=== PATIENT | female | born 1955 | race Caucasian/White ===

== ENCOUNTER 2017-11-11 17:23 | Emergency (ER) | payer BC ==
[2017-11-11] MEDS ORDERED: Levalbuterol 0.63MG/3ML NEB* UNIT OF USE INH ONE (17:39)
[2017-11-11] MEDS ORDERED: predniSONE TAB* 20 MG PO ONE (17:43)
--- NOTE | 2017-11-11 17:44 | UC ---
Respiratory Complaint HPI - HPI Summary HPI Summary: Pt c/o sudden onset of "flare of asthma" and URI like symptoms of nasal congestion, cough, and SOB. Pt stated that she started to feel "achy" yesterday and went to work today began to feel more "chest tightness", productive cough and "difficulty breathing" - History of Current Complaint Chief Complaint: UCGeneralIllness Stated Complaint: ASTHMA/DIFFICULTY BREATHING Time Seen by Provider: 11/11/17 17:28 Hx Obtained From: Patient ?: No Onset/Duration: Gradual Onset, Lasting Days Timing: Constant Severity Initially: Mild Severity Currently: Moderate Character: Cough: Productive Aggravating Factors: Exertion, Deep Breaths Alleviating Factors: Nothing Associated Signs And Symptoms: Positive: Dyspnea, URI, Nasal Congestion - Risk Factors Pulmonary Embolism Risk Factors: Negative Cardiac Risk Factors: Negative Pseudomonas Risk Factors: Negative Tuberculosis Risk Factors: Negative - Allergies/Home Medications Allergies/Adverse Reactions: Allergies Allergy/AdvReac Type Severity Reaction Status Date / Time No Known Allergies Allergy Verified 11/11/17 17:34 PMH/Surg Hx/FS Hx/Imm Hx Previously Healthy: Yes Respiratory History: Asthma - Surgical History Surgical History: Yes Surgery Procedure, Year, and Place: hysterectomy. 5 - Family History Known Family History: Positive: Cardiac Disease - Social History Occupation: Employed Full-time Lives: With Family Alcohol Use: Occasionally Substance Use Type: None Smoking Status (MU): Never Smoked Tobacco Have You Smoked in the Last Year: No - Immunization History Most Recent Influenza Vaccination: none Review of Systems Constitutional: Fatigue Skin: Negative Eyes: Negative ENT: Other - nasal congestion Respiratory: Shortness Of Breath, Cough Cardiovascular: Negative Gastrointestinal: Negative Genitourinary: Negative Motor: Negative Neurovascular: Negative Musculoskeletal: Negative Neurological: Negative Psychological: Negative Is Patient Immunocompromised?: No All Other Systems Reviewed And Are Negative: Yes Physical Exam Triage Information Reviewed: Yes Vital Signs: Initial Vital Signs Temp 98.5 F 11/11/17 17:30 Pulse 103 11/11/17 17:30 Resp 18 11/11/17 17:30 BP 124/68 11/11/17 17:30 Pulse Ox 96 11/11/17 17:30 Vital Signs Reviewed: Yes Eye Exam: Normal ENT Exam: Other ENT: Positive: Nasal congestion Dental Exam: Normal Neck exam: Normal Respiratory Exam: Other Respiratory: Positive: Decreased breath sounds, Other: - c/o labored breathing Cardiovascular: Positive: Tachycardia Musculoskeletal Exam: Normal Neurological Exam: Normal Psychological Exam: Normal Skin Exam: Normal UC Diagnostic Evaluation - Laboratory O2 Sat by Pulse Oximetry: 96 Respiratory Course/Dx - Differential Dx/Diagnosis Differential Diagnosis/HQI/PQRI: Asthma, Exacerbation Of COPD Provider Diagnoses: reactive airway disease Discharge - Discharge Plan Condition: Stable Disposition: HOME Prescriptions: Albuterol HFA INHALER* [Ventolin HFA Inhaler*] 1 - 2 puff INH Q4H PRN #1 mdi PRN Reason: Sob/Wheezing Benzonatate CAP* [Tessalon 100 MG CAP*] 100 mg PO Q8H PRN #21 cap PRN Reason: Cough Montelukast Sodium TAB* [Singulair TAB*] 10 mg PO BEDTIME #30 tab predniSONE TAB* [Deltasone TAB*] 40 mg PO DAILY #8 tab Patient Education Materials: Reactive Airways Disease (ED) Referrals: Maury Flaherty MD [Primary Care Provider] - If Needed
[2017-11-11 17:50] VITALS: BP 124/68
== END 2017-11-11 18:16 | disposition home or self-care (01) ==
LOC: UCCORT 17:23
DX: J45.909 Unspecified asthma, uncomplicated (principal)
CPT/HCPCS: 99212; G0463; J7512; J7614

== ENCOUNTER 2018-05-18 15:54 | Emergency (ER) | payer BC ==
[2018-05-18 16:36] VITALS: BP 106/67
--- NOTE | 2018-05-18 16:58 | UC ---
Dizzy HPI HPI Summary: onset yesterday of whooshing sensation, relieved by holding her head still. Has some sense of movement of her body in space, but no room spinning. No headache or diplopia. No balance loss. In the past has responded to flonase and tx of allergies, as well as to meclizine. - History Of Current Complaint Chief Complaint: UCDizziness Stated Complaint: DIZZINESS (HX OF VERTIGO) Time Seen by Provider: 05/18/18 16:43 Hx Obtained From: Patient Onset/Duration: Sudden Onset, Lasting Days - 1-2 Timing: Intermittent Episode Lasting - hours; has to hold her head steady to avoid symptoms. Severity Initially: Moderate Severity Currently: Mild Pain Intensity: 0 Character: Head Spinning, Lightheaded Aggravating Factor(s): Position Change Alleviating Factor(s): Rest, Closing Eyes Associated Signs And Symptoms: Positive: Nausea - Risk Factors Cardiac Risk Factors: Negative CVA Risk Factor: Negative - Allergies/Home Medications Allergies/Adverse Reactions: Allergies Allergy/AdvReac Type Severity Reaction Status Date / Time No Known Allergies Allergy Verified 05/18/18 16:35 PMH/Surg Hx/FS Hx/Imm Hx Previously Healthy: Yes Respiratory History: Asthma - Surgical History Surgical History: Yes Surgery Procedure, Year, and Place: hysterectomy. 5 - Family History Known Family History: Positive: Other - father living age 93; mother dementia - Social History Occupation: Employed Full-time Lives: With Family Alcohol Use: Occasionally Substance Use Type: None Smoking Status (MU): Never Smoked Tobacco Have You Smoked in the Last Year: No - Immunization History Most Recent Influenza Vaccination: Not the Season Review of Systems Constitutional: Fatigue ENT: Nasal Discharge, Sinus Congestion - hx of environmental allergies, has used montelukast in the past with good relief, but needs a new rx. Gastrointestinal: Other - constipation prone Is Patient Immunocompromised?: No All Other Systems Reviewed And Are Negative: Yes Physical Exam Triage Information Reviewed: Yes Appearance: Well-Appearing, No Pain Distress Vital Signs: Initial Vital Signs Temp 98.9 F 05/18/18 16:30 Pulse 83 05/18/18 16:30 Resp 16 05/18/18 16:30 BP 106/67 05/18/18 16:30 Pulse Ox 100 05/18/18 16:30 Eyes: Positive: Conjunctiva Clear ENT Exam: Other - No nystagmus, but eye movement provoke symptoms of wooziness. ENT: Positive: Pharynx normal, TM bulging - serous fluid bilaterally Neck: Positive: Supple, Nontender, No Lymphadenopathy Respiratory: Positive: Lungs clear, Normal breath sounds Cardiovascular: Positive: RRR, No Murmur Neurological Exam: Other - CNII-XII normal. No pronator drift. Normal gait, neg Romberg's. Normal finger to nose touching. Psychological Exam: Normal Dizzy Course/Dx - Course Course Of Treatment: environemental allergies triggering mild vertigo--increase antihistamines and add meclizine. - Differential Dx/Diagnosis Differential Diagnosis/HQI/PQRI: Benign Paroxysmal Positional Vertigo, Labyrinthitis, Other - allergies. Provider Diagnoses: environmental allergies with associated vertigo. Discharge - Sign-Out/Discharge Documenting (check all that apply): Discharge/Admit/Transfer - Discharge Plan Condition: Stable Disposition: HOME Prescriptions: Meclizine TAB* [Antivert 12.5 TAB*] 12.5 mg PO TID PRN #30 tab PRN Reason: Vertigo Montelukast Sodium TAB* [Singulair 10 MG TAB*] 10 mg PO BEDTIME #30 tab Patient Education Materials: Vertigo (ED), Allergies (ED) Referrals: Maury Flaherty MD [Primary Care Provider] - Additional Instructions: Continue flonase and loratidine, and add [id number] daily for control of allergies. Use meclizine as needed for sense of instability. this can cause sedation and might be most useful to take at night. follow up if symptoms persist or worsen. - Billing Disposition and Condition Condition: STABLE Disposition: Home
== END 2018-05-18 17:16 | disposition home or self-care (01) ==
LOC: UCCORT 15:54
DX: J30.2 Other seasonal allergic rhinitis (principal); R42 Dizziness and giddiness
CPT/HCPCS: 99212; G0463

== ENCOUNTER 2019-12-08 13:02 | Emergency (ER) | payer BC ==
[2019-12-08 13:14] VITALS: BP 126/75
--- NOTE | 2019-12-08 13:23 | UC ---
Dizzy HPI HPI Summary: dizziness x 1 day symptoms are moderate , 6 out 10 worse with head movements , better with rest + nausea , no vomiting, + sinus pressure/ bilateral ear pressure no fever, no chills, - History Of Current Complaint Chief Complaint: UCDizziness Stated Complaint: dizziness Time Seen by Provider: 12/08/19 13:04 Hx Obtained From: Patient Onset/Duration: Gradual Onset, Lasting Days - 1, Still Present Timing: Constant Severity Initially: Moderate Severity Currently: Moderate Pain Intensity: 0 Character: Dizzy Aggravating Factor(s): Exertion, Position Change, Change In Head Position Alleviating Factor(s): Rest Associated Signs And Symptoms: Positive: Nausea. Negative: Vomiting, Diaphoresis, Tinnitus, Chest Pain, SOB, Palpitations, Unsteady Gait, Visual Changes - Allergies/Home Medications Allergies/Adverse Reactions: Allergies Allergy/AdvReac Type Severity Reaction Status Date / Time No Known Allergies Allergy Verified 12/08/19 13:10 PMH/Surg Hx/FS Hx/Imm Hx Endocrine History: Hypothyroidism Respiratory History: Asthma Psychological History: Depression - Surgical History Surgical History: Yes Surgery Procedure, Year, and Place: hysterectomy. 5 - Family History Known Family History: Positive: Cardiac Disease, Other - father living age 93; mother dementia - Social History Alcohol Use: Occasionally Substance Use Type: None Smoking Status (MU): Never Smoked Tobacco Have You Smoked in the Last Year: No - Immunization History Most Recent Influenza Vaccination: Not the Season Review of Systems All Other Systems Reviewed And Are Negative: Yes Is Patient Immunocompromised?: No Physical Exam Triage Information Reviewed: Yes Appearance: Well-Appearing, No Pain Distress, Well-Nourished Vital Signs: Initial Vital Signs Temp 97.4 F 12/08/19 13:11 Pulse 81 12/08/19 13:11 Resp 18 12/08/19 13:11 BP 126/75 12/08/19 13:11 Pulse Ox 98 12/08/19 13:11 Vital Signs Reviewed: Yes Eye Exam: Normal Eyes: Positive: Conjunctiva Clear ENT: Positive: Normal ENT inspection, Hearing grossly normal, Pharynx normal, TMs normal. Negative: Nasal congestion, Nasal drainage, TM bulging, TM dull, TM red, Sinus tenderness Neck exam: Normal Neck: Positive: Supple, Nontender, No Lymphadenopathy Respiratory: Positive: Chest non-tender, Lungs clear, Normal breath sounds Cardiovascular: Positive: RRR, No Murmur, Pulses Normal Abdominal Exam: Normal Abdomen Description: Positive: Nontender, Soft Bowel Sounds: Positive: Present Neurological: Positive: Alert UC Physical Exam Vital Signs On Initial Exam: Initial Vitals Temp Pulse Resp BP Pulse Ox 97.4 F 81 18 126/75 98 12/08/19 13:11 12/08/19 13:11 12/08/19 13:11 12/08/19 13:11 12/08/19 13:11 - Neurological Exam Neurological: Normal, Sensory/Motor Intact, Alert, Oriented to Person Place, Time, CN Intact II-III, Normal Gait, Speech Normal Dizzy Course/Dx - Differential Dx/Diagnosis Provider Diagnosis: Vertigo Discharge ED - Sign-Out/Discharge Documenting (check all that apply): Patient Departure All imaging exams completed and their final reports reviewed: No Studies - Discharge Plan Condition: Stable Disposition: HOME Prescriptions: Meclizine TAB* [Antivert 12.5 TAB*] 25 mg PO TID PRN #15 tab PRN Reason: Dizziness Patient Education Materials: Vertigo (ED) Referrals: Maury Flaherty MD [Primary Care Provider] - If Needed - Billing Disposition and Condition Condition: STABLE Disposition: Home
== END 2019-12-08 13:31 | disposition home or self-care (01) ==
LOC: UCCORT 13:02
DX: R42 Dizziness and giddiness (principal); J45.909 Unspecified asthma, uncomplicated
CPT/HCPCS: 99212; G0463